=== PATIENT | female | born 1950 | race Caucasian/White ===

== ENCOUNTER 2018-07-25 13:25 | Outpatient (REF) | payer MEDICARE, SELFPAY ==
[2018-07-25 14:44] LABS: Cholesterol 207 mg/dL (50-200); HDL Cholesterol 57 mg/dL (40-60); LDL CHOLESTEROL 143 mg/dL (<100); TSH (W/Ref FT4) 1.87 uIU/mL (0.358-3.74); Triglyceride 54 mg/dL (30-150)
== END 2018-07-25 13:45 ==
LOC: NCHCN 13:25
PROVIDERS: PCP Family Medicine; Visit Provider Family Medicine
DX: E03.9 Hypothyroidism, unspecified (principal)
CPT/HCPCS: 80061; 83721; 84443

== ENCOUNTER 2019-07-27 14:50 | Outpatient (REF) | payer MEDICARE, OTHER, SELFPAY ==
[2019-07-27 16:06] LABS: TSH 6.63 uIU/mL (0.36-3.74)
== END 2019-07-27 15:10 ==
LOC: NCHCN 14:50
PROVIDERS: PCP Family Medicine; Visit Provider Family Medicine
DX: E03.9 Hypothyroidism, unspecified (principal)
CPT/HCPCS: 84443

== ENCOUNTER 2019-11-02 15:25 | Outpatient (REF) | payer MEDICARE, OTHER, SELFPAY ==
[2019-11-02 16:36] LABS: TSH (W/Ref FT4) 1.55 uIU/mL (0.36-3.74)
== END 2019-11-02 15:45 ==
LOC: NCHCN 15:25
PROVIDERS: PCP Family Medicine; Visit Provider Family Medicine
DX: E03.9 Hypothyroidism, unspecified (principal)
CPT/HCPCS: 84443

== ENCOUNTER 2020-08-04 10:07 | Outpatient (REF) | payer MEDICARE, OTHER, SELFPAY ==
[2020-08-04 13:44] LABS: HCT 42.9 % (36.0-46.0); HGB 14.1 g/dL (11.2-15.7); MCH 28.7 pg (27.0-33.0); MCHC 32.9 % (32.0-36.0); MCV 87.4 fL (80-95); MPV 10.4 fL (8.0-11.0); Platelet Count 202 10^3/uL (130-400); RBC 4.91 10^6/uL (3.93-5.22); RDW 12.3 % (11.7-14.6); RDW-SD 39.4 fL; WBC 3.41 10^3/uL (4.4-10.8)
[2020-08-04 14:14] LABS: Vitamin D 25 Total 48.2 ng/ml (30-100)
[2020-08-04 14:15] LABS: TSH (W/Ref FT4) 1.28 uIU/mL (0.36-3.74); Vitamin B12 526 pg/mL (193-986)
== END 2020-08-04 10:27 ==
LOC: NCHCN 10:07
PROVIDERS: PCP Family Medicine; Visit Provider Family Medicine
DX: E03.9 Hypothyroidism, unspecified (principal); M85.80 Other specified disorders of bone density and structure, unspecified site
CPT/HCPCS: 82306; 85027; 82607; 82746; 84443

== ENCOUNTER 2021-03-09 17:20 | Outpatient (REF) | payer MEDICARE, OTHER, SELFPAY ==
[2021-03-09 19:47] LABS: Bilirubin Negative (Negative); Blood Negative (Negative); Clarity Clear (Clear); Glucose Negative (Negative); Ketones Negative (Negative); Leukocyte Esterase Negative (Negative); Nitrite Negative (Negative); Specific Gravity 1.025 (1.005-1.025); Urobilinogen 0.2 EU/dL (Up TO 0.2); pH 5.5 (5-8)
== END 2021-03-09 17:21 | disposition home or self-care (01) ==
LOC: NCHCN 17:20
PROVIDERS: PCP Family Medicine; Visit Provider Family Medicine
DX: N89.8 Other specified noninflammatory disorders of vagina (principal); L29.8 Other pruritus
CPT/HCPCS: 81003; 87480; 87510; 87660

== ENCOUNTER 2021-07-31 13:49 | Outpatient (REF) | payer MEDICARE, OTHER, SELFPAY ==
[2021-07-31 15:51] LABS: TSH (W/Ref FT4) 1.71 uIU/mL (0.36-3.74)
== END 2021-07-31 13:50 | disposition home or self-care (01) ==
LOC: NCHCN 13:49
PROVIDERS: PCP Family Medicine; Visit Provider Family Medicine
DX: E03.9 Hypothyroidism, unspecified (principal)
CPT/HCPCS: 84443

== ENCOUNTER 2021-08-07 15:56 | Outpatient (REF) | payer MEDICARE, OTHER, SELFPAY ==
[2021-08-07 14:55] LABS: HCT 44.4 % (36.0-46.0); HGB 14.3 g/dL (11.2-15.7); MCH 28.5 pg (27.0-33.0); MCHC 32.2 % (32.0-36.0); MCV 88.6 fL (80-95); MPV 10.3 fL (8.0-11.0); Platelet Count 198 10^3/uL (130-400); RBC 5.01 10^6/uL (3.93-5.22); RDW 12.2 % (11.7-14.6); RDW-SD 39.8 fL
[2021-08-07 15:08] LABS: Anion Gap 8.9 mmol/L (3-11); CO2 28.1 mmol/L (21.0-32.0); Chloride 104 mmol/L (98-107); Potassium 4.1 mmol/L (3.5-5.1); Sodium 141 mmol/L (136-145)
[2021-08-07 15:21] LABS: BUN 11 mg/dL (7-18); CREATININE 0.6 mg/dL (0.55-1.02); Calcium 9.2 mg/dL (8.5-10.1); Glucose 102 mg/dL (74-106)
== END 2021-08-07 15:57 | disposition home or self-care (01) ==
LOC: NCHCN 15:56
PROVIDERS: PCP Family Medicine; Visit Provider Family Medicine
DX: G47.62 Sleep related leg cramps (principal)
CPT/HCPCS: 80048; 85027; 83735

== ENCOUNTER → 2021-08-17 10:04 | Outpatient (BNVA) | payer MEDICARE, OTHER, SELFPAY | PROVIDERS: PCP Family Medicine; Referring Provider Family Medicine; Visit Provider Physical Therapy Assistant | DX: Z12.11 Encounter for screening for malignant neoplasm of colon (principal); Z86.010 Personal history of colon polyps; Z80.0 Family history of malignant neoplasm of digestive organs | CPT/HCPCS: 99212 ==

== ENCOUNTER 2021-08-23 02:18 | Outpatient (CLI) | payer MEDICARE, OTHER, SELFPAY ==
[2021-08-23 21:19] LABS: COVID-19 PCR Negative (Negative)
[2021-08-23 23:20] LABS: Source Nasal/Nares
== END 2021-08-23 02:19 | disposition home or self-care (01) ==
LOC: LBO 02:18
PROVIDERS: PCP Family Medicine; Visit Provider Surgery
DX: Z20.822 Contact with and (suspected) exposure to COVID-19 (principal)
CPT/HCPCS: 87635

== ENCOUNTER 2021-08-25 08:43 | Day surgery (SDC) | payer MEDICARE, OTHER, SELFPAY ==
--- NOTE | 2021-08-24 21:47 | W.COLOREPORT ---
Colonoscopy Report Date of procedure: 08/25/21 Pre-op diagnosis general: hx of T.adenoma&S.Adenoma/+family Hx >50 Post-op diagnosis procedure note: other (Minor diverticula. No polyps today.) Surgeon: Jocelin Rayo Anesthesia Type: General:No Airway Estimated blood loss (mL): 0 Pathology: none sent Complications: None Disposition: same day Prep: Miralax/Dulcolax Retraction Time: 10 mins Procedure Description: After informed consent was obtained the patient was taken to the procedure room and placed in a left decubitous position. Monitors were applied and a time out was done. The patients name, date of , procedure, allergies to medications and metal in their body was reviewed. The patient was then sedated. Once sedated and comfortable a rectal exam was done. External exam was normal. Internal exam revealed a normal sphincter tone and no palpable masses. The scope was then introduced and retrofelexed. No internal hemorrhoids were identified. The scope was then advanced to the cecum w/out difficulty. The TI and appendiceal orifice were identified. The prep was BBPS-3 throughout the entire colon. The scope was then slowly retracted over 10 minutes back into the rectum. There are no polyps or AVMs. She has a few small scattered diverticula confined to the sigmoid colon. There is no signs of active bleeding or infection. Scope was removed and the patient was woken up and taken back to Same day surgery in stable condition. The patient tolerated the procedure well and there were no immediate complications. Follow up: The patient should follow up in 5 years, provided she is still healthy for anesthesia,unless they develop changes in bowel habits or other new gastrointestinal complaints.
--- NOTE | 2021-08-24 21:48 | PDOC.DSDIS_ITS ---
Discharge Plan Disposition Patient Disposition: HOME Condition: Good Discharge Details Reason For Visit: colon Scope/colonoscopy Attending Provider: Jocelin Rayo Primary Care Provider: Lissette Badillo Home Meds and New Rx's Prescriptions: No Action ascorbic acid (vitamin C) [Vitamin C] 500 MG tablet 500 mg PO DAILY 0RF Label Comments: Patient uncertain of dose calcium carb-magnesium carb 250-300 mg tablet 1 tab PO DAILY 0RF omega-3 fatty acids [Fish Oil Concentrate] 1,000 mg capsule 1,000 mg PO DAILY 0RF levothyroxine 100 mcg capsule 100 mcg PO DAILY 0RF triamcinolone acetonide 0.1 % ointment 1 applic topical BID 0RF cholecalciferol (vitamin D3) [Vitamin D3] 2,000 UNIT capsule 2,000 unit PO DAILY 0RF Discharge Instructions Additional Instructions: DSU Colonoscopy Post- Op Instructions Instructions for Everyone who is given Anesthesia: For your safety, please do the following for the next twenty-four (24) hours: *Do Not operate a motor vehicle (car, truck, motorcycle, etc.) *Do Not drink alcoholic beverages or use any recreational drugs for the first 24 hours or while taking pain medications. The medications in your body may have a reaction that can be dangerous. *Do Not make any important decisions or sign any important papers. Findings: NO polyps today very minor/few diverticula Follow up:repeat scope in 5 yrs time 1. No lifting over 20 pounds or strenuous activity for the first 24 hours after your procedure. After 24 hours there are no restrictions on your activity but you may feel fatigued for a few days. 2. After you arrive home you may have a light meal and return to your normal diet as you can tolerate it without feeling sick to your stomach. 3. You may have a bloated, gaseous feeling in your belly (abdomen) after a colonoscopy. Passing gas and belching will help. Walking or lying down on your left side with your knees flexed may relieve the discomfort. Call the office at [phone] (Office) or [phone] (Hospital) right away if you notice any of the following: a.Vomiting of blood or ?coffee ground stools?. b.Rectal bleeding 1Tbsp, blood clots or continuous bleeding. c.Severe belly (abdominal) pain. d.A hard distended belly (abdomen) and an inability to pass gas. 4. Please don?t expect to have a normal BM (bowel movement) for 2-3 days after your procedure. 5. If there are questions regarding the findings of your procedure, please contact your doctor 6. If you are unable to contact your doctor with a problem, contact the hospital at [phone]. 7. Continue all your regular medications unless directed otherwise. I understand the above instructions and have no questions. Signature of Patient or Adult Escort Name of Responsible Adult Escort Signature of Nurse Date/Time Activity:: See above Diet:: See above Discharge Orders Discharge Orders: Discharge Order (Routine); Ordered 08/24/21 Ordered By: Jocelin Rayo
[2021-08-25 09:03] VITALS: BP 125/83; PULSE 84; RESP 17; TEMP 36.1; O2SAT 98
--- NOTE | 2021-08-25 09:06 | W.ANESPRE ---
General Info Date of Service Date Performed: 08/25/21 Height: 5 ft 4 in Weight: 67.132 kg Body Mass Index (BMI): 25.4 Surgical Procedure: Operation Date: 08/25/21 08:50 Proposed Procedure Side Surgeon soraida Rayo, DO Meds Allergies and Home Medications Allergies Allergy/AdvReac Type Severity Reaction Status Date / Time No Known Allergies Allergy Unverified 08/23/21 12:48 Home Medication Medication Instructions Recorded cholecalciferol (vitamin D3) 50 2,000 unit PO DAILY 10/29/16 mcg (2,000 unit) capsule (Vitamin D3) ascorbic acid (vitamin C) 500 mg 500 mg PO DAILY 06/06/17 tablet (Vitamin C) calcium carb-magnesium carb 250 1 tab PO DAILY tab 03/21/21 mg-300 mg tablet omega-3 fatty acids 1,000 mg 1,000 mg PO DAILY 03/21/21 capsule (Fish Oil Concentrate) levothyroxine 100 mcg capsule 100 mcg PO DAILY 08/10/21 triamcinolone acetonide 0.1 % 1 applic TOPICAL BID 08/10/21 topical ointment Current Visit Medications: Current Medications Generic Name Dose Route Start Last Admin Trade Name Freq PRN Reason Stop Dose Admin Hyoscyamine Sulfate 0.125 mg 08/24/21 21:38 Hyoscyamine 0.125 Mg Sl/Oral/Chew SL DIRECTED PRN Ringer's Solution 1,000 mls @ 80 mls/hr 08/25/21 06:00 IV 09/23/21 23:59 INFUSION SAM IV Miscellaneous Supplies 1 each 08/25/21 06:00 Iv Access IV 09/23/21 23:59 DIRECTED SAM Ondansetron HCl 4 mg 08/24/21 21:38 Ondansetron 4 Mg/2 Ml Vial IVP Q4H PRN PRN Nausea / Vomiting Sodium Chloride 0 ml 08/25/21 06:00 Normal Saline Flush 10 Ml Syr IV 09/23/21 23:59 PRN PRN Sodium Chloride 0 ml 08/25/21 06:00 Normal Saline 10 Ml Vial IJ 09/23/21 23:59 DIRECTED PRN Sterile Water 0 ml 08/25/21 06:00 Water,Injection,Sterile 10 Ml Vial IJ 09/23/21 23:59 DIRECTED PRN PFSH Active Problems Active Problems: Problem Status Onset Code Family history of malignant neoplasm of colon in relative diagnosed when older than 50 years of age Z80.0 Lichen sclerosus L90.0 Screening for colon cancer Z12.11 Medical History Medical History Aromatase inhibitor use (06/06/17) Cervical dysplasia History of ectopic Hx of breast cancer Hx of colonic polyps 2014 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 Hypothyroidism 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) Multinodular goiter Neuropathy due to chemotherapeutic drug Osteopenia Pelvic pressure in female (07/16/16) Skin anomaly Urinary frequency Urinary incontinence, mixed Surgical History Surgical History Breast, Lumpectomy 2014 Bilateral Cervical Procedure Colonoscopy - IV Sedation 2008- Nml, diverticula 2014- sessile serrated adenoma, tubular adenoma, hyperplastic 2018- Hyperplastic x 2 Left shoulder surgery 2017 , Ectopic Tobacco Smoking/Tobacco Use Status: Never Alcohol Alcohol Intake: current Alcohol intake frequency: 0-2 drinks per day Alcohol type: wine Substance Use Substance use: Never Substance use type: does not use Vital Signs and Lab Results Lab Results Blood Type / Crossmatch: No Data to Display Complete Blood Count: White Blood Count 4.00 10^3/uL (4.4-10.8) L 08/07/21 08:43 08/07/21 Red Blood Count 5.01 10^6/uL (3.93-5.22) 08/07/21 08:43 08/07/21 Hemoglobin 14.3 g/dL (11.2-15.7) 08/07/21 08:43 08/07/21 Hematocrit 44.4 % (36.0-46.0) 08/07/21 08:43 08/07/21 Platelet Count 198 10^3/uL (130-400) 08/07/21 08:43 08/07/21 Complete Metabolic Panel: Sodium Level 141 mmol/L (136-145) 08/07/21 08:43 08/07/21 Potassium Level 4.1 mmol/L (3.5-5.1) 08/07/21 08:43 08/07/21 Chloride Level 104 mmol/L (98-107) 08/07/21 08:43 08/07/21 Carbon Dioxide Level 28.1 mmol/L (21.0-32.0) 08/07/21 08:43 08/07/21 Blood Urea Nitrogen 11 mg/dL (7-18) 08/07/21 08:43 08/07/21 Creatinine 0.6 mg/dL (0.55-1.02) 08/07/21 08:43 08/07/21 Estimated GFR/1.73 m2 >= 60.00 (mL/min/1.73m2) 08/07/21 08:43 08/07/21 Magnesium Level 2.0 mg/dL (1.8-2.4) 08/07/21 08:43 08/07/21 Calcium Level 9.2 mg/dL (8.5-10.1) 08/07/21 08:43 08/07/21 Glucose Level 102 mg/dL (74-106) 08/07/21 08:43 08/07/21 Liver Function Panel: No Data to Display Coagulation Panel: No Data to Display Cardiac Panel: No Data to Display Arterial Blood Gas: No Data to Display Venous Blood Gas: No Data to Display Pancreas Panel: No Data to Display Thyroid Panel: Thyroid Stimulating Hormone (TSH) 1.71 uIU/mL (0.36-3.74) 07/31/21 09:05 07/31/21 Infectious Disease: Coronavirus (COVID-19)(PCR) Negative (Negative) 08/23/21 08:54 08/23/21 Coronavirus 2019 Source Nasal/Nares 08/23/21 08:54 08/23/21 Blood Cultures: No Data to Display Toxicology Panel: No Data to Display Anesthesia Assessment and Plan Anesthesia History Personal History: No History of Anesthesia Complications Family History: No Family History of Anesthesia Complications Exercise Tolerance Exercise Tolerance: Metabolic Equivalents<4 Pertinent Negatives Pertinent Negatives: No Symptoms of GERD Cardiac & Pulmonary Exam Cardiac Exam: Normal S1/S2 Heart Sounds Pulmonary Exam: Clear Bilateral Breath Sounds Implantable Cardiac Device Does patient have a Pacemaker or an ICD?: No Airway Exam Known Difficult Airway: No Mallampati Class: 2 Mouth Opening: Normal (> 3cm) Thyromental Distance: Greater than 3 cm Neck Range of Motion: Full ROM Neck Circumference: Normal Teeth Condition: Normal Dentition ASA Classification ASA Score: ASA 2 Emergency Case?: No NPO Status NPO Status: NPO Clears >2 hours, Solids >8 hours Anesthesia Plan Resuscitation Status: Full Code Anesthesia Technique: General Anesthesia Airway Planned: Natural Airway Monitors Used: Standard Monitors
[2021-08-25 09:08] VITALS: BMI 25.4
[2021-08-25] MEDS: Lactated Ringers 1,000 ML 80 ML IV (09:27)
[2021-08-25 10:08] VITALS: BP 114/69; PULSE 58; RESP 16; TEMP 36.1; O2SAT 96
--- NOTE | 2021-08-25 10:27 | W.ANESPOSTOP ---
Postoperative Evaluation Date, Time and Location Date Performed: 08/25/21 Time Performed: 10:27 Patient Location: Day Surgery Unit Vital Signs Most Recent Imported Vital Signs: Most Recent Vital Signs Temp Pulse Resp BP Pulse Ox 36.1 C L 58 L 16 114/69 96 08/25/21 10:08 08/25/21 10:08 08/25/21 10:08 08/25/21 10:08 08/25/21 10:08 Pain Score Most Recent Pain Score: Most Recent Pain Score Pain Level 0 08/25/21 10:08 Assessment Mental Status: Awake (Alert & Oriented to Patient Baseline) Airway and Respiratory Function: Patent airway with normal (patient baseline) respiratory exam Cardiovascular Function: Hemodynamically Stable Hydration Status: Adequately Hydrated Nausea & Vomiting: No Nausea or Vomiting Pain: Pt. Denies Any Pain Peripheral Nerve Block: Patient did not receive a nerve block
[2021-08-25 10:36] VITALS: BP 130/69; PULSE 56; RESP 16; TEMP 36.5; O2SAT 99
== END 2021-08-25 11:35 | disposition home or self-care (01) ==
LOC: SUR 08:43
PROVIDERS: PCP Family Medicine; Visit Provider Surgery
PROC: 0DJD8ZZ Inspection of Lower Intestinal Tract, Via Natural or Artificial Opening Endoscopic (ICD-10-PCS; CPT 45378; principal; 2021-08-25 08:45)
DX: Z12.11 Encounter for screening for malignant neoplasm of colon (principal); Z86.010 Personal history of colon polyps; Z80.0 Family history of malignant neoplasm of digestive organs; Z85.3 Personal history of malignant neoplasm of breast; E06.3 Autoimmune thyroiditis
CPT/HCPCS: G0105; J2704

== ENCOUNTER → 2021-09-26 10:48 | Outpatient (BNVA) | payer MEDICARE, OTHER, SELFPAY | PROVIDERS: PCP Family Medicine; Referring Provider Family Medicine; Visit Provider Nurse Practitioner Gerontology | DX: R10.2 Pelvic and perineal pain (principal); R35.0 Frequency of micturition; L90.9 Atrophic disorder of skin, unspecified | CPT/HCPCS: 81003; 99215 ==

== ENCOUNTER → 2021-11-20 08:23 | Outpatient (BNVA) | payer MEDICARE, OTHER, SELFPAY | PROVIDERS: PCP Family Medicine; Referring Provider Family Medicine; Visit Provider Nurse Practitioner Gerontology | DX: R10.2 Pelvic and perineal pain (principal) | CPT/HCPCS: 99214 ==

== ENCOUNTER 2022-08-09 14:07 | Outpatient (REF) | payer MEDICARE, OTHER, SELFPAY ==
[2022-08-09 15:38] LABS: TSH (W/Ref FT4) 0.74 uIU/mL (0.36-3.74)
== END 2022-08-09 14:08 | disposition home or self-care (01) ==
LOC: NCHCN 14:07
PROVIDERS: PCP Family Medicine; Visit Provider Family Medicine
DX: E03.9 Hypothyroidism, unspecified (principal)
CPT/HCPCS: 84443

== ENCOUNTER 2023-08-09 16:47 | Outpatient (REF) | payer MEDICARE, OTHER, SELFPAY ==
[2023-08-09 15:37] LABS: Calculated LDL 121 mg/dL (<100); Cholesterol 194 mg/dL (<200); Glucose 105 mg/dL (74-106); HDL Cholesterol 67 mg/dL (40-60); TSH (W/Ref FT4) 0.37 uIU/mL (0.36-3.74); Triglyceride 30 mg/dL (<150)
== END 2023-08-09 16:48 | disposition home or self-care (01) ==
LOC: NCHCN 16:47
PROVIDERS: PCP Family Medicine; Visit Provider Family Medicine
DX: Z13.1 Encounter for screening for diabetes mellitus (principal); E03.9 Hypothyroidism, unspecified
CPT/HCPCS: 80061; 82947; 84443

== ENCOUNTER 2023-09-13 18:24 | Outpatient (REF) | payer MEDICARE, OTHER, SELFPAY ==
--- NOTE | 2023-09-13 09:15 | SKI_PTH ---
PATIENT: Miroslava Panchal LOC: [facility] U#:[id number] AGE/SX: 72/F ROOM: RE09/13/[address]: Lissette Badillo : 1950 BED: DIS: 09/13/2023 SPEC #: [id number] RECD: 09/13/23 18:42 STATUS: MANUELITO RESamuel #: [id number] MANUEL: 09/13/23 09:[address]: Lissette Badillo DEPT: Surgical Specimen RECD BY: Claribel Pendleton Tissues: 1 - SKIN BIOPSY(SHAVE/PUNCH) Procedures: SKIN LEVEL 4 Comments: [id number]
== END 2023-09-13 18:25 | disposition home or self-care (01) ==
LOC: LBN 18:24
PROVIDERS: PCP Family Medicine; Referring Provider Family Medicine; Visit Provider Family Medicine
DX: C43.72 Malignant melanoma of left lower limb, including hip (principal)
CPT/HCPCS: 88305

== ENCOUNTER 2024-08-19 09:51 | Outpatient (REF) | payer MEDICARE, OTHER, SELFPAY ==
[2024-08-19 15:50] LABS: FREE T4 1.37 ng/dL (0.76-1.46)
== END 2024-08-19 09:52 | disposition home or self-care (01) ==
LOC: NCHCN 09:51
PROVIDERS: PCP Family Medicine; Visit Provider Family Medicine
DX: E03.9 Hypothyroidism, unspecified (principal)
CPT/HCPCS: 84439; 84443

== ENCOUNTER 2024-09-07 12:23 | Emergency (ER) | payer MEDICARE, OTHER, SELFPAY ==
[2024-09-07 12:27] VITALS: BP 161/90; PULSE 81; RESP 15; TEMP 36.2; O2SAT 98
--- NOTE | 2024-09-07 12:38 | W.ED.GENAD ---
Discharge Plan Disposition Patient Disposition: Home Condition: Stable Discharge Details Clinical Impression: Lumbar back sprain Primary Care Provider: Lissette Badillo ED Provider: Jeyson Christian Home Meds and New Rx's Prescriptions: New methocarbamol 750 mg tablet 750 mg PO QID 7 Days Qty: 28 0RF Continued ascorbic acid (vitamin C) [Vitamin C] 500 MG tablet 500 mg PO DAILY Patient Comments: Patient uncertain of dose calcium carb-magnesium carb 250-300 mg tablet 1 tab PO DAILY omega-3 fatty acids [Fish Oil Concentrate] 1,000 mg capsule 1,000 mg PO DAILY cholecalciferol (vitamin D3) [Vitamin D3] 2,000 UNIT capsule 2,000 unit PO DAILY levothyroxine 88 mcg tablet 88 mcg PO DAILY Patient Comments: TAKE ONE TABLET BY MOUTH EVERY DAY Discharge Instructions Instructions: Back Muscle Strain, Methocarbamol Additional Instructions: You were seen in the emergency department for your lumbar muscle strain. There is no evidence of kidney stone on your urine study today. Please take 650 mg of Tylenol 4 times per day or 1000 mg 3 times per day. Please take 400 mg of ibuprofen every 6 hours. Please use the prescribed methocarbamol for skeletal muscle relaxation for the next 7 days, apply an [id number] lidocaine patch to the area of pain each day for 12 hours, it may be more comfortable to apply this at night to help you sleep. You may purchase [id number] Voltaren gel to apply to the area of pain for 2-3 times per day. Please apply heat and ice to the area, follow-up with physical therapy referral if desired, please return to the emergency department for any negative changes, any urinary bowel changes, severe increase in abdominal pain with fever or nausea. Stand Alone Forms: Physical Therapy Referral Referrals: Lissette Badillo MD [Primary Care Provider] - Discharge Data Discharge Date/Time-TO BE ENTERED AT DEPARTURE: 09/07/24 13:26 HPI General Date/Time Provider Initiated Documentation: 09/07/24 12:35. HPI Narrative: 73 year-old female presents to ED today by POV/ambulating with a chief complaint of R flank pain with onset yesterday, denies trauma but was helping her with stacking wood. Quality described as R paraspinal pain, no radiation to dysuria, frequency, urgency, dark urine, fever, cough, nausea, numbness/tingling to legs, numbness to genitals. Severity is described as moderate. Palliating factors include nothing specific attempted. Provoking factors include nothing specific. Patient not anticoagulated. Related Data Home Medications ?Medication ?Instructions ?Recorded ?Confirmed cholecalciferol (vitamin D3) 50 2,000 unit PO DAILY 10/29/16 09/07/24 mcg (2,000 unit) capsule (Vitamin D3) ascorbic acid (vitamin C) 500 mg 500 mg PO DAILY 06/06/17 09/07/24 tablet (Vitamin C) calcium carb-magnesium carb 250 1 tab PO DAILY 03/21/21 09/07/24 mg-300 mg tablet omega-3 fatty acids 1,000 mg 1,000 mg PO DAILY 03/21/21 09/07/24 capsule (Fish Oil Concentrate) levothyroxine 88 mcg tablet 88 mcg PO DAILY 09/07/24 09/07/24 methocarbamol 750 mg tablet 750 mg PO QID 7 days #28 tabs 09/07/24 Previous Rx's ?Medication ?Instructions ?Recorded methocarbamol 750 mg tablet 750 mg PO QID 7 days #28 tabs 09/07/24 Allergies Allergy/AdvReac Type Severity Reaction Status Date / Time No Known Allergies Allergy Unverified 09/07/24 12:30 General Stated Complaint: Abd Prob SHERRI: 3 Review of Systems All systems reviewed & are unremarkable except as noted in HPI and below Exam Narrative Exam Narrative: GENERAL APPEARANCE: Well-nourished, non-toxic, awake and alert, atraumatic, no acute distress. SKIN: Warm, pink, dry, intact, without rashes/lesions/ulcerations. HEAD: Normocephalic, atraumatic, normal hair distribution for gender/age. EYES: Normal conjunctiva, no exudates on lids/lashes. ENT: Nares patent, no circumoral cyanosis, no facial swelling NECK: Supple, trachea midline, painless cervical ROM. LUNGS/CHEST: Non-labored respirations, normal A/P diameter, symmetrical expansion, no chest wall deformity HEART (CV/PV): No peripheral edema, no JVD. ABDOMEN: Soft, non-distended, no guarding, no RUQ tenderness, no CVA tenderness to percussion bilaterally MSK: Normal ROM, no swelling/deformity to bilateral UEs or LEs, moving all extremities without weakness, no cyanosis, spine midline without tenderness, normal curvature, R lumbar paraspinal muscle tension and mild tenderness, no midline vertebral tenderness/crepitus NEURO: Mental Status AAOx4 - alert to person, place, time, events No facial droop, no forehead involvement. Motor: No focal weakness - strength 5/5 in bilateral UEs and LEs, proximal and distal, symmetric. Sensory: sensation intact to light touch globally. Gait normal: patient ambulated without ataxia into ED room. PSYCH: euthymic, cooperative, pleasant, appropriate speech Course Vital Signs Vital signs: Vital Signs Temperature 36.2 C L 09/07/24 12:27 Pulse 81 09/07/24 12:27 Respiratory Rate 15 09/07/24 12:27 Blood Pressure 161/90 H 09/07/24 12:27 Pulse Oximetry 98 09/07/24 12:27 Temperature 36.2 C L 09/07/24 12:27 Pulse 81 09/07/24 12:27 Respiratory Rate 15 09/07/24 12:27 Blood Pressure 161/90 H 09/07/24 12:27 Blood Pressure Position Sitting 09/07/24 12:27 Pulse Oximetry 98 09/07/24 12:27 Oxygen Delivery Method Room Air 09/07/24 12:27 Oxygen Flow Rate 0 09/07/24 12:27 Medical Decision Making This dictation utilizes [id number] dictation software and may contain unedited grammatical errors. 73 year-old female presents to ED today by POV/ambulating with a chief complaint of R flank pain with onset yesterday, denies trauma but was helping her with stacking wood. Quality described as R paraspinal pain, no radiation to dysuria, frequency, urgency, dark urine, fever, cough, nausea, numbness/tingling to legs, numbness to genitals. Severity is described as moderate. Palliating factors include nothing specific attempted. Provoking factors include nothing specific. Patients' medical history: Urinary incontinence, urinary frequency. Family and social history: Noncontributory. Pertinent exam findings / vital signs include R lumbar paraspinal muscle tenderness, no midline vertebral tenderness/crepitus/step-offs, no CVA tenderness to percussion bilaterally, no RUQ tenderness. Differential / pathologies of concern include lumbar back sprain/spasm, less likely renal colic. Diagnostic studies of: -UA - no proteinuria/hematuria, do not suspect renal pathology. Interventions of: -Tylenol, Toradol, Lidoderm patch, methocarbamol. ED Course/Assessment/Plan: 73-year-old female presents with likely right lumbar back spasm or strain from helping her stack wood this week, there is no evidence for renal colic on her urine study and her exam does not fit with this pathology, she has no significant abnormal vitals. I did provide a PT referral and Rx for skeletal muscle relaxer and recommend APAP/NSAIDs, strict return criteria for any significant urinary bowel changes, severe increase in pain or emergent concerns. Findings not consistent with cauda equina, renal colic. Disposition of Lumbar Back Sprain. Patient verbalized understanding of the plan and return to ED criteria and engaged in shared decision making. Medical Records Medical records reviewed: Yes I reviewed the patient's medical records. Lab Data Lab results reviewed: Yes I reviewed the patient's lab results. Labs: Laboratory Tests Range/Units 09/07/24 12:40 Urine Color (Yellow) Yellow Urine Clarity (Clear) Clear Urine pH (5-8) 6.0 Ur Specific [place] (1.005-1.025) <= 1.005 Urine Protein (Neg-Trace) mg/dL Negative Urine Ketones (Negative) mg/dL Negative Urine Blood (Negative) Negative Urine Nitrite (Negative) Negative Urine Bilirubin (Negative) Negative Urine Urobilinogen (Up to 0.2) mg/dL 0.2 Ur Leukocyte Esterase (Negative) Negative Urine Glucose (Negative) mg/dL Negative Quality:SDOH Health Related Social Needs: No Data to Display PFSH All Active Problems (Updated 09/07/24 @ 13:13 by JONE Reagan) Lumbar back sprain (Acute) Diverticula of colon (Acute) very minor Dx. 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) Multinodular goiter Neuropathy due to chemotherapeutic drug Osteopenia Pelvic pressure in female (07/16/16) Skin anomaly Urinary frequency Urinary incontinence, mixed Surgical History Breast, Lumpectomy 2014 Bilateral Cervical Procedure Colonoscopy - IV Sedation (~08/25/21) 2008- Nml, diverticula 2014- sessile serrated adenoma, tubular adenoma, hyperplastic 2017- Hyperplastic x 2 08/2021 diverticula of colon, no polyps, [place] Left shoulder surgery 2017 , Ectopic Family History Mother Colon cancer at 62 Father Myocardial infarction Social History Smoking/Tobacco Use Status: Never Smoking risk assessment performed?: Yes Alcohol Intake: current Alcohol Intake frequency: 0-2 drinks per day Alcohol type: wine Drug use: Never Substance use type: does not use Current gender identity: female Do you feel safe at home: Yes Do you feel safe in your relationship?: Yes
[2024-09-07 13:05] LABS: Bilirubin Negative (Negative); Blood Negative (Negative); Clarity Clear (Clear); Glucose Negative (Negative); Ketones Negative (Negative); Leukocyte Esterase Negative (Negative); Nitrite Negative (Negative); Specific Gravity <= 1.005 (1.005-1.025); Urobilinogen 0.2 mg/dL (Up to 0.2)
[2024-09-07] MEDS: Lidocaine 5% Patch 1 PATCH TP (13:05)
[2024-09-07] MEDS: Ketorolac 10 MG TAB PO (13:05)
[2024-09-07] MEDS: Acetaminophen 500 MG TAB 1000 MG PO (13:05)
[2024-09-07] MEDS: Methocarbamol 750 MG TAB PO (13:12)
[2024-09-07 13:25] VITALS: BP 143/79; PULSE 60; RESP 15; O2SAT 98
== END 2024-09-07 13:26 | disposition home or self-care (01) ==
PROVIDERS: Emergency Provider Physician Assistant; PCP Family Medicine
DX: S33.5XXA Sprain of ligaments of lumbar spine, initial encounter (principal); X58.XXXA Exposure to other specified factors, initial encounter
CPT/HCPCS: 99283; 81003

== ENCOUNTER 2024-11-17 15:58 | Outpatient (REF) | payer MEDICARE, OTHER, SELFPAY | END 2024-11-17 15:59 | disposition home or self-care (01) | LOC: NCHCN 15:58 | PROVIDERS: PCP Family Medicine; Visit Provider Family Medicine | DX: E03.9 Hypothyroidism, unspecified (principal) | CPT/HCPCS: 84443 ==

== ENCOUNTER 2025-02-24 02:19 | Outpatient (CLI) | payer MEDICARE, OTHER, SELFPAY ==
--- NOTE | 2025-02-24 | DI.DEXA_ITS ---
Exam(s) XR DEXA BONE DENSITY W/WO CHRISTEN EXAM: XR DEXA BONE DENSITY W/WO CHRISTEN CLINICAL HISTORY: ASYMPTOMATIC MENOPAUSAL STATE Z78.0 SCREENING OSTEOPOROSIS TECHNIQUE: HoloGlide C densitometer analysis of left hip, lumbar spine and left forearm. Lateral survey image of the thoracic and lumbar spine. COMPARISON: 2017 through 2021 FINDINGS: Lateral view of the thoracic and lumbar spine shows no evidence of compression fractures. Bone mineral density measurements of the lumbar spine correspond to a total T- score of 0.1, in the normal range. This is not significantly changed from the prior exams. Bone mineral density measurements of the left hip correspond to a total T-score of -1.9. This represents a 6.2 percent decrease from 08/18/2019 0.5 percent decrease from 2018. The femoral neck T-score is -1.8, in the osteopenic range.. Theleft forearm bone mineral density measurements correspond to a T-score of the distal 3rd of negative 1.9, in the osteopenic range. The forearm was not analyzed on the previous exams. IMPRESSION: Stable normal bone mineral density of the lumbar spine. Osteopenia of the hip and forearm.
== END 2025-02-24 02:39 ==
LOC: DI 02:19
PROVIDERS: PCP Family Medicine; Visit Provider Family Medicine
DX: Z13.820 Encounter for screening for osteoporosis (principal); Z78.0 Asymptomatic menopausal state; M85.89 Other specified disorders of bone density and structure, multiple sites
CPT/HCPCS: 77080